=== PATIENT | female | born 1965 | race Hispanic/Latino ===

== ENCOUNTER 2019-01-20 08:45 | Day surgery (SDC) | payer BC ==
[~2019-01-20] VITALS: Ht 157.5 cm; Wt 86.2 kg
--- NOTE | ~2019-01-20 | OR ---
[facility] [address] [place], [place] [address] Draft DATE OF OPERATION: SURGEON: Craig Toledo DO DATE OF PROCEDURE: 01/20/2019 PREOPERATIVE DIAGNOSES: 1. Postmenopausal bleeding. 2. Endometrial thickening. POSTOPERATIVE DIAGNOSES: 1. Postmenopausal bleeding. 2. Endometrial polyp. 3. Submucosal fibroid. PROCEDURES PERFORMED: 1. Hysteroscopic myomectomy. 2. Hysteroscopic polypectomy. 3. Dilation and curettage. MENAGERIE CARETAKER: None. ANESTHESIA: General. ESTIMATED BLOOD LOSS: 25 mL. FLUID DEFICIT: 550 mL of normal saline. FINDINGS: Normal external genitalia. Normal vagina, urethral meatus, and cervix. On hysteroscopy, normal cervical canal. In the uterine cavity, there was an endometrial polyp and a large submucosal fibroid. These were resected completely. The endometrium otherwise does not appear to be significantly thickened or abnormal. Hemostasis at the end of procedure. COMPLICATIONS: PATIENT NAME: PATRIA MALAGON OPERATIVE REPORT DATE OF : 67 REPORT #: [id number] PHYSICIAN: CRAIG TOLEDO DO PCP: VU ALFARO DO REPORT IS CONFIDENTIAL AND NOT TO BE RELEASED WITHOUT AUTHORIZATION [facility] [address] [place], [place] [address] Draft None. INDICATIONS: Ms. Malagon is a very pleasant 53-year-old female, who presented with postmenopausal bleeding. An ultrasound was performed that demonstrated a thickened endometrium consistent with intracavitary lesion. Decision was made to proceed with operative hysteroscopy. Risks, benefits, and alternatives were discussed in detail with the patient. The patient understands and wished to proceed with the procedure. TECHNIQUE: The patient was taken to the operating room. Time-out was performed to confirm correct patient and correct procedure. General anesthesia was adequately established. The patient was prepped and draped in the dorsal lithotomy position with the feet in Yellofin stirrups. ICPs were on and running and no preoperative antibiotics or heparin were indicated. A weighted speculum was placed in vagina and the anterior lip of the cervix was grasped with single-tooth tenaculum. The cervix was gently dilated with Hegar dilators to #7. An operative hysteroscope was then placed in the os and advanced under direct visualization into the uterine cavity. Once in the uterine cavity, intracavitary lesions were noted. The patient had a fleshy polyp emerging from the anterior fundal portion of the uterus as well as a large submucosal fibroid. A MyoSure Reach device was selected and the fibroid was resected and sent to pathology. A second biopsy specimen was performed when the myomectomy was performed. The fibroid was resected with a MyoSure Reach device with good hemostasis in total. The fibroid was noted to be quite dense; however, morcellation went well. A final biopsy was performed using the MyoSure Reach device by globally sampling the endometrial tissue. These three specimens were sent to pathology for further evaluation. Good hemostasis was obtained. Fluid deficit was 550. The operative hysteroscope was then withdrawn and the Allis clamp removed. Good hemostasis was appreciated. The patient was taken to PACU in good and stable condition. Sponge, needle, instrument count was correct x2 at the end of the procedure. Craig D Toledo, DO JDW/MODL /[id number] PATIENT NAME: PATRIA MALAGON OPERATIVE REPORT DATE OF : 67 REPORT #: [id number] PHYSICIAN: CRAIG TOLEDO DO PCP: VU ALFARO DO REPORT IS CONFIDENTIAL AND NOT TO BE RELEASED WITHOUT AUTHORIZATION [address] [address] Draft cc: Vu Alfaro DO Copies: VU ALFARO DO ~ PATIENT NAME: PATRIA MALAGON OPERATIVE REPORT DATE OF : 67 REPORT #: [id number] PHYSICIAN: CRAIG TOLEDO DO PCP: VU ALFARO DO REPORT IS CONFIDENTIAL AND NOT TO BE RELEASED WITHOUT AUTHORIZATION
[~2019-01-20 08:45] MED LIST: CITALOPRAM HBR10 MG PO; OMEPRAZOLE20 MG PO
--- NOTE | 2019-01-20 11:21 | NUR ---
01/20/19 1121 Sheets,[place] 1116 PT WAKES TO PAINFUL STIMULI AND DENIES PAIN. PT BACK TO SLEEP. RESP EVEN AND UNLABORED. SNORING NOTED.
--- NOTE | 2019-01-20 11:55 | NUR ---
ICED WATER AND JELLO GIVEN. SPOUSE AT THE BEDSIDE. CALL LIGHT WITHIN REACH.
[2019-01-20] MEDS ORDERED: MOTRIN IB200 M1 PO (12:26)
--- NOTE | 2019-01-20 14:51 | NUR ---
PATIENT LEFT AT 1350. PATIENT AMBULATED TO WHEEL CHAIR AND TO VEHICLE FROM WHEELCHAIR. DISCHARGE INSTRUCTIONS WERE DISCUSSED WITH THE PATIENT PRIOR TO LEAVING. PATIENT ASKED FOR MOTRIN TO BE CALLED IN FOR BANKING AND FINANCE INSTRUCTOR AT THE [facility]. PERSCRIPTION WAS CALLED IN AT 1400. PATIENT HAD NO OTHER QUESTIONS OR CONCERNS.
--- NOTE | 2019-01-21 14:04 | PATH ---
[facility] [address], [place] [address] Signed SPECIMEN(S): A ENDOMETRIAL POLYP SPECIMEN(S): B ENDOMETRIAL FIBROID SPECIMEN(S): C ENDOMETRIAL CURETTINGS SPECIMEN SOURCE: A. ENDOMETRIAL POLYP B. ENDOMETRIAL FIBROID C. ENDOMETRIAL CURETTINGS CLINICAL HISTORY: Postmenopausal bleeding; endometrial polyp. FINAL PATHOLOGIC DIAGNOSIS: A. Uterus, endometrium, polyp, biopsy: - Fragments of benign endometrial polyp. - No hyperplasia or malignancy identified. B. Uterus, endometrium, "fibroid", biopsy: - Fragments of leiomyoma. - Weakly proliferative endometrium. - No hyperplasia or malignancy identified. C. Uterus, endometrium, curettage: - Focal simple hyperplasia without atypia arising in a background of weakly proliferative endometrium. - No malignancy identified. NAL:cml:C2NR MICROSCOPIC EXAMINATION: Histologic sections of all submitted blocks are examined by light microscopy. These findings, together with the gross examination, support the pathologic diagnosis. GROSS DESCRIPTION: Three specimens are received in three containers, labeled "SI." A. The specimen, labeled "SI, endometrial polyp," is received in formalin and consists of multiple cotton-white cotton-pink soft tissue fragments aggregating to 2.5 x 2.0 x 0.3 cm. The specimen is filtered and entirely submitted in cassette (A1). B. The specimen, labeled "SI, endometrial fibroid," is received in formalin and consists of multiple cotton-white soft tissue fragments aggregating to 3.5 x 3.5 x 2.0 cm. The specimen is filtered and entirely submitted in cassette (B1-B4). PATIENT NAME: PATRIA MALAGON PATHOLOGY DATE OF : 67 REPORT #: [id number] PHYSICIAN: MARTY HORTON PCP: NHUNG ALFARO DO REPORT IS CONFIDENTIAL AND NOT TO BE RELEASED WITHOUT AUTHORIZATION [facility] [address], [place] [address] Signed C. The specimen, labeled "SI, endometrial curettings," is received in formalin and consists of multiple cotton-pink, hemorrhagic, and mucinous soft tissue fragments aggregating to 2.5 x 1.1 x 0.3 cm. The specimen is filtered and entirely submitted in cassette (C1). AR (under the direct supervision of a pathologist) The Gross Description was prepared using a voice recognition system. The report was reviewed for accuracy; however, sound-alike word errors, addition and/or deletions may occur. If there is any question about this report, please contact Client Services. PERFORMING LABORATORY: The technical component was performed by [facility], [address] [place] [id number] (Stained Glass Glazier Helper: Anabel Hall MD; CLIA# [id number]). Professional interpretation was performed by [facility], [facility], [address] [place] [id number] (CLIA# [id number]). Diagnostician: Valeri Adan MD Pathologist Electronically Signed 01/21/2019 Copies: ~ PATIENT NAME: PATRIA MALAGON PATHOLOGY DATE OF : 67 REPORT #: [id number] PHYSICIAN: MARTY HORTON PCP: NHUNG ALFARO DO REPORT IS CONFIDENTIAL AND NOT TO BE RELEASED WITHOUT AUTHORIZATION
== END 2019-01-20 13:40 | disposition home or self-care (01) ==
LOC: DS 08:45 → OPS 08:45 → DS 09:30 → OPS 09:30
PROVIDERS: Obstetrics & Gynecology
PROC: 0UB98ZZ Excision of Uterus, Via Natural or Artificial Opening Endoscopic (ICD-10-PCS; 2019-01-20)
PROC: 0UDB8ZZ Extraction of Endometrium, Via Natural or Artificial Opening Endoscopic (ICD-10-PCS; 2019-01-20)
PROC: 0UB98ZZ Excision of Uterus, Via Natural or Artificial Opening Endoscopic (ICD-10-PCS; principal; 2019-01-20 09:30)
DX: D25.0 Submucous leiomyoma of uterus (principal); N84.0 Polyp of corpus uteri; E66.9 Obesity, unspecified; D64.9 Anemia, unspecified; K21.9 Gastro-esophageal reflux disease without esophagitis; Z79.899 Other long term (current) drug therapy; Z68.34 Body mass index [BMI] 34.0-34.9, adult
CPT/HCPCS: 00952; J1100; J1885; J2250; J2405; J2704; J2765; J3010; J7120

== ENCOUNTER → 2019-02-02 | Emergency (ER) | payer BC ==
[~2019-02-02] VITALS: Ht 157.5 cm; Wt 86.2 kg
[~2019-02-02] MED LIST changes: +MOTRIN IB200 M1 PO
== END ==
LOC: ED 04:17
DX: N93.9 Abnormal uterine and vaginal bleeding, unspecified (principal); Z88.5 Allergy status to narcotic agent; Z79.899 Other long term (current) drug therapy
CPT/HCPCS: 85025; 96361; 96374; 96375; 99284-25; J2405; J7030

== ENCOUNTER 2019-05-12 07:05 | Day surgery (SDC) | payer BC ==
[~2019-05-12] VITALS: Ht 157.5 cm; Wt 88.0 kg
--- NOTE | ~2019-05-12 | OR ---
[facility] [address] [place], [place] [address] Draft DATE OF OPERATION: 05/12/2019 SURGEON: Craig Toledo DO PREOPERATIVE DIAGNOSES: 1. Postmenopausal bleeding. 2. Adenomyosis. 3. Endometrial hyperplasia, simple without atypia. POSTOPERATIVE DIAGNOSES: 1. Postmenopausal bleeding. 2. Adenomyosis. 3. Endometrial hyperplasia, simple without atypia. 4. Abdominal adhesions. 5. Fibroid uterus. PROCEDURES PERFORMED: 1. Total laparoscopic hysterectomy. 2. Bilateral salpingectomy. 3. Cystoscopy. 4. Lysis of adhesions, totaling approximately 5 minutes in time. FOOTBALL SCOUT: Eugene Del Rio MD. ANESTHESIA: General. ESTIMATED BLOOD LOSS: 50 mL. SPECIMEN: Uterus, cervix, and bilateral fallopian tubes. FINDINGS: Normal external genitalia with some mild relaxation, especially in the posterior compartment. Normal cervix. On laparoscopy, mild omental adhesions in the mid upper abdomen on the right. Small fundal fibroid with normal bilateral tubes and ovaries. Hypertrophy of the uterosacral ligaments bilaterally. An James-Masters window noted in the posterior cul-de-sac. Normal bladder and ureteral jets on cystoscopy. Small oozing PATIENT NAME: PATRIA MALAGON OPERATIVE REPORT DATE OF : 67 REPORT #: [id number] PHYSICIAN: CRAIG TOLEDO DO PCP: NHUNG ALFARO DO REPORT IS CONFIDENTIAL AND NOT TO BE RELEASED WITHOUT AUTHORIZATION [facility] [address] [place], [place] [address] Draft of the left vaginal cuff of the vagina noted and repaired vaginally at the end of the procedure. COMPLICATIONS: None. INDICATIONS: Ms. Malagon is a very pleasant 54-year-old postmenopausal woman who developed postmenopausal bleeding. Ultrasound was performed that demonstrated a thickened endometrium as well as heterogeneous myometrium suspicious of adenomyosis. The patient was consented for a hysteroscopy, which was performed that demonstrated hypertrophic endometrium without atypia. We discussed options for treatment. The patient continued to have fairly heavy bleeding postoperatively and she requested definitive treatment with hysterectomy. Risks, benefits, and alternatives were discussed in detail. The patient understands and wishes to proceed with the procedure. TECHNIQUE: The patient was taken to the operating room, where a time-out was performed to confirm correct patient and correct procedure. General anesthesia was adequately established. The patient was prepped and draped in the dorsal lithotomy position with the feet in Yellofin stirrups. ICPs were on and running. The patient received 2 g of Ancef preoperatively as well as heparin. A weighted speculum was placed in the vagina and the anterior lip of the cervix was grasped with single-tooth tenaculum. The cervix was gently dilated using Hegar dilators and a VCare uterine manipulator was placed without difficulty. A Arredondo catheter was inserted. The surgeon's gloves were changed and attention was turned to the abdomen. The base of the umbilicus was infiltrated with 0.25% Marcaine with epinephrine. A 5 mm incision was made and a 5 mm trocar was used to perform direct visual entry into the abdomen without difficulty. Opening pressures were noted and pneumoperitoneum was established. Survey of the abdomen and pelvis was performed that demonstrated mild omental adhesions to the anterior abdominal wall in the right mid portion of the abdomen. Assist ports were placed in the lower quadrants on the left, a 5 mm, and on the right, an 8 mm expanding port was placed without difficulty. Attention was turned to the adhesion, which was taken down at the edge of the abdominal wall without difficulty or bleeding noted using a LigaSure device. Attention was then turned to the pelvis. The left fallopian tube was grasped at the fimbriated end, elevated and divided along the mesosalpinx using the LigaSure device. The fallopian tube was then amputated and delivered through the trocar. The left uteroovarian ligament was fulgurated and divided with good hemostasis. The left round ligament was fulgurated and divided and the leaves of the broad ligament were easily dissected down to the level of cuff. Of note, both uterosacral ligaments were very hypertrophic. The uterine vessels were identified, fulgurated and divided with good hemostasis. The bladder was pushed well below the cuff. Attention was turned to the PATIENT NAME: PATRIA MALAGON OPERATIVE REPORT DATE OF : 67 REPORT #: [id number] PHYSICIAN: CRAIG TOLEDO DO PCP: NHUNG ALFARO DO REPORT IS CONFIDENTIAL AND NOT TO BE RELEASED WITHOUT AUTHORIZATION [facility] [address] [place], [place] [address] Draft right side where the process was repeated. The right fallopian tube was fulgurated and divided along the mesosalpinx and delivered. The right utero-ovarian ligament was fulgurated and divided with good hemostasis. The right round ligament was fulgurated and divided and the leaves of the broad ligament were divided down to the vaginal cuff without difficulty. The right uterine vessels were sealed and divided with some oozing noted. This was made hemostatic with the LigaSure. Once dissection around the vaginal cup was completed and good hemostasis was appreciated, the Sonicision device was then selected and used to perform colpotomy. Colpotomy was started at the 6 o'clock position and the green edge of the cup was immediately seen. Dissection around the cuff was performed without difficulty with good hemostasis noted. The uterus and cervix were then delivered through the vagina with somewhat of a tight fit, but no morcellation was required. The vagina was then stuffed with a wet lap in a glove to maintain pneumoperitoneum and attention was turned to cuff closure. The right uterosacral ligament was grasped, elevated, and V-Loc suture using the Endo Stitch device was then applied to close the cuff in a running nonlocked manner. Careful attention was paid to incorporate the uterosacral ligaments, scant as they may be, and vaginal epithelium with each bite. Good vaginal support and hemostasis were appreciated. The pelvis was irrigated and Tisseel was applied to the cuff and to the dissection planes. Pneumoperitoneum was reduced and trocars removed. Trocar sites repaired with 4-0 Monocryl in a subcuticular stitch with good hemostasis and cosmesis. Attention was then turned to cystoscopy. The Arredondo catheter was removed and a 70-degree cystoscope was placed in the urethral meatus and advanced under direct visualization into the bladder. Normal bladder was noted with bilateral ureteral jets noted soon after beginning of cystoscopy. The bladder was drained. Arredondo catheter was reinserted and the glove was removed from the vagina. A moderate amount of bleeding was noted from the vagina and this was investigated further. The left vaginal edge of the cup was noted to be bleeding. This was made hemostatic with a superficial [id number] using 0 chromic suture. Good hemostasis was appreciated. The patient was then taken to PACU in good and stable condition. Sponge, needle, and instrument count was correct x2 at the end of the procedure. Dr. Del Rio was present and participated in all portions of procedure. Craig Toledo DO JDW/MODL /[id number] PATIENT NAME: PATRIA MALAGON OPERATIVE REPORT DATE OF : 67 REPORT #: [id number] PHYSICIAN: CRAIG TOLEDO DO PCP: NHUNG ALFARO DO REPORT IS CONFIDENTIAL AND NOT TO BE RELEASED WITHOUT AUTHORIZATION [address] [place], [place] [address] Draft Copies: ~ PATIENT NAME: PATRIA MALAGON OPERATIVE REPORT DATE OF : 67 REPORT #: [id number] PHYSICIAN: CRAIG TOLEDO DO PCP: NHUNG ALFARO DO REPORT IS CONFIDENTIAL AND NOT TO BE RELEASED WITHOUT AUTHORIZATION
--- NOTE | 2019-05-16 16:22 | PATH ---
[facility] [address] [place], [place] [address] Signed SPECIMEN(S): A UTERUS AND TUBES SPECIMEN SOURCE: A. UTERUS AND TUBES CLINICAL HISTORY: Postmenopausal bleeding. Adenomyosis. Endometrial hyperplasia without atypia. Abnormal uterine bleeding. TLH, BS, cystoscopy. FINAL PATHOLOGIC DIAGNOSIS: Uterus and bilateral fallopian tubes, hysterectomy and bilateral salpingectomy: - Cervix: - Mild chronic cervicitis. - Tunnel clusters. - Endometrium: - Small foci of simple hyperplasia without atypia. - Background endometrium weakly proliferative. - Myometrium: Subserosal and intramural leiomyomas. - Right and left fallopian tubes: No microscopic pathologic diagnosis. FARA:smn:C2NR MICROSCOPIC EXAMINATION: Histologic sections of all submitted blocks are examined by light microscopy. These findings, together with the gross examination, support the pathologic diagnosis. GROSS DESCRIPTION: The specimen, labeled "SI, uterus and bilateral fallopian tubes," is received in formalin and consists of a 153 g, 9.9 x 7.6 x 5.0 cm uterus including a 2.9 cm diameter cervix with a 0.8 cm slit-like os. Separate in the container are two undesignated fimbriated fallopian tubes measuring 4.3 cm in length by 0.8 cm diameter and 5.2 cm in length by 0.7 cm diameter. In the posterior fundus there is a single 0.9 cm pedunculated cotton-white serosal nodule in the anterior corpus there are two cotton-white, well-circumscribed subserosal nodules measuring 0.3 and 0.6 cm in greatest dimension. Also in the anterior corpus there are two cotton-white, well-defined nodules measuring 0.3 and 0.4 cm in greatest dimension. In the posterior corpus, there is a single 0.9 cm cotton-white, whorled and well-circumscribed intramural nodule. The 0.1 cm, thick endometrium is cotton-red PATIENT NAME: PATRIA MALAGON PATHOLOGY DATE OF : 67 REPORT #: [id number] PHYSICIAN: MARTY PATHOLOGY PCP: NHUNG ALFARO DO REPORT IS CONFIDENTIAL AND NOT TO BE RELEASED WITHOUT AUTHORIZATION [facility] [address], [place] [address] Signed and smooth. Myometrium is cotton-pink and grossly unremarkable. Both fallopian tubes have a violaceous and smooth serosal surface with a stellate lumen. The first dictated fallopian tube is inked black. Cassette Summary: (A1) anterior and posterior cervix (A2) anterior corpus with nodules (A3-A5) remainder of anterior endometrium (A6) posterior corpus with nodules (A7-A9) remainder of posterior endometrium (A10) both fallopian tubes AM (under the direct supervision of a pathologist) The Gross Description was prepared using a voice recognition system. The report was reviewed for accuracy; however, sound-alike word errors, addition and/or deletions may occur. If there is any question about this report, please contact Client Services. PERFORMING LABORATORY: The technical component was performed by [facility] [address] (Payroll And Benefits Manager: Anabel Hall MD; CLIA# [id number]). [facility], [address] [address] (Payroll And Benefits Manager: Rodney Bower MD; CLIA# [id number]). Diagnostician: Rodney Bower MD Pathologist Electronically Signed 05/16/2019 Copies: ~ PATIENT NAME: PATRIA MALAGON PATHOLOGY DATE OF : 67 REPORT #: [id number] PHYSICIAN: MARTY HORTON PCP: NHUNG ALFARO DO REPORT IS CONFIDENTIAL AND NOT TO BE RELEASED WITHOUT AUTHORIZATION
== END 2019-05-12 16:50 | disposition home or self-care (01) ==
LOC: OPS 07:05 → DS 07:05 → OPS 09:45
PROVIDERS: Obstetrics & Gynecology
PROC: 0UT94ZZ Resection of Uterus, Percutaneous Endoscopic Approach (ICD-10-PCS; principal; 2019-05-12 09:45)
PROC: 0UT74ZZ Resection of Bilateral Fallopian Tubes, Percutaneous Endoscopic Approach (ICD-10-PCS; 2019-05-12 09:45)
DX: D25.2 Subserosal leiomyoma of uterus (principal); N72 Inflammatory disease of cervix uteri; N80.0 Endometriosis of uterus; K66.0 Peritoneal adhesions (postprocedural) (postinfection); K21.9 Gastro-esophageal reflux disease without esophagitis; E66.9 Obesity, unspecified; Z79.899 Other long term (current) drug therapy; Z68.35 Body mass index [BMI] 35.0-35.9, adult
CPT/HCPCS: 00840; J0690; J1100; J1644; J1885; J2250; J2405; J2704; J2765; J3010; J7121

== ENCOUNTER 2019-10-09 01:37 | Emergency (ER) | payer BC ==
[~2019-10-09] VITALS: Ht 157.5 cm; Wt 88.5 kg
== END 2019-10-09 03:42 | disposition home or self-care (01) ==
LOC: ED 01:37
DX: K27.9 Peptic ulcer, site unspecified, unspecified as acute or chronic, without hemorrhage or perforation (principal); F32.9 Major depressive disorder, single episode, unspecified; Z79.899 Other long term (current) drug therapy; Z88.6 Allergy status to analgesic agent
CPT/HCPCS: 80053; 81001; 83690; 85025; 96374; 96375; 99284-25; C9113; J2405